=== PATIENT | female | born 1980 | race Caucasian/White ===

== ENCOUNTER 2016-07-28 16:39 | Inpatient (IN) | payer MEDICAID ==
[~2016-07-28] VITALS: Ht 170.2 cm; Wt 68.2 kg
--- NOTE | 2016-07-28 00:20 | NUR ---
2ND UNIT PRBC'S STARTED AT THIS TIME. VSS. WILL MONITOR. VISITOR AT BEDSIDE. SIDE RAILS X 2. BED LOW. CALL LIGHT IN REACH.
[~2016-07-28 16:39] MED LIST: PRENATAL COMPLE1 TAB PO
[2016-07-28 17:07] LABS: BASOPHILS 0.3 % (0.0-2.0); EOSINOPHILS 1.1 % (0-7); LYMPHOCYTES 41.3 % (15-50); MCHC 26.2 g/dL (31.0-37.0); MEAN PLATELET VOLUME 9.5 fL (7.4-10.4); MONOCYTES 10.8 % (2-11); NEUTROPHILS 46.5 % (40-80); RBC 4.06 10x6/uL (4.00-5.40); RDW 16.8 % (11.5-14.5); WBC 3.5 10x3/uL (4.8-10.8)
[2016-07-28 17:43] LABS: ALBUMIN 3.9 g/dL (3.4-5.0); ALKALINE PHOSPHATASE 53 U/L (46-116); ALT (SGPT) 16 U/L (10-68); CALC OSMOLALITY 272 mosm/kg (275-300); CALCIUM 7.8 mg/dL (8.5-10.1); CARBON DIOXIDE 22.8 mmol/L (21.0-32.0); CHLORIDE - SERUM 101 mmol/L (98-107); CREATININE - SERUM 0.7 mg/dL (0.6-1.3); GLUCOSE 118 mg/dL (74-106); PROTEIN - SERUM 7.6 g/dL (6.4-8.2); SODIUM 136 mmol/L (136-145); UREA NITROGEN 12 mg/dL (7-18); eGFR NON AFRICAN AMERICAN > 90 mL/min (90-120)
[2016-07-28 17:46] LABS: APPEARANCE HAZY (CLEAR); BILIRUBIN NEGATIVE (NEGATIVE); COLOR YELLOW (YELLOW); GLUCOSE NEGATIVE (NEGATIVE); KETONE NEGATIVE (NEGATIVE); LEUKOCYTE ESTERASE 1+ (NEGATIVE); NITRITE POSITIVE (NEGATIVE); PROTEIN TRACE mg/dL (NEGATIVE); UROBILINOGEN NORMAL (NORMAL)
[2016-07-28 17:47] LABS: BACTERIA MANY /hpf (NONE SEEN); RED CELLS - URINE 0-5 /hpf (0-5)
[2016-07-28 17:48] LABS: HEMOGLOBIN 6.8 g/dL (12-16); MCH 16.7 pg (26.0-34.0); PLATELET COUNT 100 10x3/uL (130-400)
[2016-07-28 19:00] LABS: UDS - AMPHET POSITIVE QUAL (NEGATIVE); UDS - BARB NEGATIVE QUAL (NEGATIVE); UDS - BENZO NEGATIVE QUAL (NEGATIVE); UDS - COCAINE NEGATIVE QUAL (NEGATIVE); UDS - METH NEGATIVE QUAL (NEGATIVE); UDS - OPIATE NEGATIVE QUAL (NEGATIVE); UDS - PCP NEGATIVE QUAL (NEGATIVE); UDS - THC NEGATIVE QUAL (NEGATIVE)
--- NOTE | 2016-07-28 22:05 | NUR ---
RECIEVED PT TO FLOOR VIA WHEELCHAIR AND HOSPITAL STAFF. PT AMBULATED SELF TO BED FROM DOORWAY. BLOOD GOING THAT WAS STARTED IN THE ED. VSS. PT IS ALERT AND ORIENTED AND ABLE TO VERBALIZE NEEDS. IV IS PATENT WITH BLOOD INFUSING. PT DENIES ANY PAIN AT THIS TIME. PT IS ORIENTED TO ROOM AND USE OF CALL LIGHT. NO NEEDS AE VERBALIZED AT THIS TIME. WILL CONTINUE TO MONITOR. SIDE RAILS ARE UP X 2. BED IS IN LOWEST POSITION. CALL LIGHT IS WITHIN REACH.
--- NOTE | 2016-07-28 22:10 | NUR ---
ADMIT ASSESSMENT COMPLETED. PT STATUS REMAINS UNCAHNGED FROM PREVIOUS. NO NEEDS VOICED. WILL MONITOR. SIDE RAILS X 2. BED LOW. CALL LIGHT IN REACH.
--- NOTE | 2016-07-28 22:35 | NUR ---
PRBC'S FINISHED AT THIS TIME. PT REMAINED W/O REACTION. VSS. WILL MONITOR. SIDE RAILS X 2. BED LOW. CALL LIGHT IN REACH.
--- NOTE | 2016-07-29 00:40 | NUR ---
PT REMAINS W/O REACTION TO TRANSFUSION AT THIS TIME. VSS. WILL MONITOR. SIDE RAILS X 2. BED LOW. CALL LIGHT IN REACH.
[2016-07-29 00:57] VITALS: BP 98/72; Ht 170.2 cm; Wt 68.2 kg
--- NOTE | 2016-07-29 02:25 | NUR ---
BLOOD FINISHED AND TUBE FLUSHING AT THIS TIME. PT REMAINED W/O REACTION AND VSS. WILL MONITOR. VISITOR AT BEDSIDE. SIDE RAILS X 2. BED LOW. CALL LIGHT IN REACH.
[2016-07-29 05:48] LABS: BASOPHILS 0.3 % (0.0-2.0); EOSINOPHILS 2.3 % (0-7); HEMATOCRIT 28.7 % (36.0-48.0); IMMATURE GRANULOCYTES 0.6 % (0-5); LYMPHOCYTES 35.8 % (15-50); MCH 18.7 pg (26.0-34.0); MCHC 27.9 g/dL (31.0-37.0); MCV 67.2 fL (80.0-100.0); MONOCYTES 14.5 % (2-11); NEUTROPHILS 46.5 % (40-80); PLATELET COUNT 105 10x3/uL (130-400); RBC 4.27 10x6/uL (4.00-5.40); RDW 19.4 % (11.5-14.5); WBC 3.5 10x3/uL (4.8-10.8)
--- NOTE | 2016-07-29 07:30 | NUR ---
REPORT RECEIVED FROM HEAD SETTER NURSE. CALL LIGHT IN REACH.
[2016-07-29 09:09] VITALS: BP 97/54
--- NOTE | 2016-07-29 09:15 | NUR ---
ASSESSMENT COMPLETED. CALL LIGHT IN REACH. WILL CONTINUE WITH PLAN OF CARE.
--- NOTE | 2016-07-29 11:20 | NUR ---
NO NEEDS VOICED AT THIS TIME. CALL LIGHT IN REACH.
[2016-07-29 13:06] VITALS: BP 116/72; BP 123/72
--- NOTE | 2016-07-29 13:30 | HP ---
PATIENT: CRISTINO COSTA MEDICAL RECORD: [id number] ACCOUNT: [id number] LOCATION:[id number] : 80 ADMISSION DATE: 07/28/16 HISTORY AND PHYSICAL EXAMINATION Admission History and Physical DATE OF ADMISSION: 07/28/2016 CHIEF COMPLAINT: Generalized weakness. HISTORY OF PRESENT ILLNESS: This is a 36-year-old white female, who presents to the Emergency Department complaining of generalized weakness. She states "I need a hysterectomy." She has heavy periods and has for years. She has gotten at least 1 transfusion in the past at [place] and does not want to go back over there. Dr. Rivera is her PCP and according to the records that I found, he last saw her in September 2013 when her hemoglobin was 6.8 and she got a blood transfusion then. In the ER today, her hemoglobin was 6.8, hematocrit 26, platelet count was 100,000 and MCV was very low at 64. Rest of her lab work was essentially normal. She is admitted for blood transfusion. PAST MEDICAL AND SURGICAL HISTORY: The patient states she was diagnosed with multiple sclerosis around [address]. She saw Dr[address] Vera in the past. She has not seen him in years. She states she is a drug addict and uses methamphetamine mostly. PAST SURGICAL HISTORY: section times 1. HOME MEDICATIONS: None. HABITS: She does smoke cigarettes. Denies any alcohol use and admits to methamphetamine. SOCIAL HISTORY: She is single. She lives with her boyfriend and her [id number]. FAMILY HISTORY: Her mother is alive and healthy. Father of lung cancer. REVIEW OF SYSTEMS: GENERAL: No major weight changes. HEENT: No sinus or allergy problems. RESPIRATORY: No history of emphysema or asthma. CARDIAC: No known coronary artery disease or heart problems. GASTROINTESTINAL: No GI bleed. No diarrhea. No constipation. No heartburn. GENITOURINARY: She has heavy periods. MUSCULOSKELETAL: No significant joint aches and pains. NEUROLOGIC: She has reportedly history of multiple sclerosis. PSYCHIATRIC: Denies depression or melancholia. PHYSICAL EXAMINATION: VITAL SIGNS: Temperature 98.4, pulse 59, respirations 20 and blood pressure 121/56. GENERAL: She is awake and alert. She does not appear to be in acute distress. She had blood being transfused right now. SKIN: Warm and dry. HISTORY AND PHYSICAL [id number] CRISTINO COSTA: Grossly within normal limits. NECK: Supple. No JVD or bruit. HEART: Regular rate and rhythm without murmur. LUNGS: Clear to auscultation. ABDOMEN: Soft, flat and nontender. EXTREMITIES: No edema. NEUROLOGIC: I did not get her up and walk her. LABORATORY WORK: CBC with a white count of 3500, hemoglobin 6.8, hematocrit 26.0, and platelets number 100,000. MCV is 64. Basic metabolic panel is all normal except calcium low at 7.8. Liver functions are all normal. CBC is contaminated with 5-10 epithelial cells. DIAGNOSTIC DATA: Chest x-ray shows no acute process. Urine drug screen was positive for methamphetamines. ASSESSMENT: 1. Menorrhagia. 2. Acute blood loss anemia, ongoing from her menstrual cycle. 3. Methamphetamine drug abuse. 4. Multiple sclerosis. PLAN: Transfuse tonight. I spoke with her briefly about [facility] [employer]E[facility] EXECUTIVE consultation to see if she would consider workup by SENIOR RESEARCH EXECUTIVE for possible hysterectomy, so that she does not continue to have anemia episodes. Other tests and procedures as warranted. TRANSINT:[id number] Voice Confirmation ID: [id number] DOCUMENT ID: [id number] ANGELA URIBE MD at 1330 CC: [id number] DICTATION DATE: 07/28/162252 [employer] SALES REPRESENTATIVE: 07/29/16 0011 ADM IN [facility] [address] [id number]
[2016-07-29] MEDS ORDERED: FERROUS SULFAT325 MG PO (13:45)
--- NOTE | 2016-07-29 13:50 | NUR ---
RESTING WITH EYES CLOSED. RESP EVEN AND UNLABORED. CALL LIGHT IN REACH.
--- NOTE | 2016-07-29 15:00 | NUR ---
PATIENT SITTING UPRIGHT IN BED ALERT. NO SIGNS OF DISTRESS NOTED. BED IN LOW POSITION. CALL LIGHT IN REACH.
--- NOTE | 2016-07-29 15:36 | NUR ---
IV DC'D WITH TIP INTACT. DC INSTRUCTIONS EXPLAINED TO PATIENT. VERBALIZED UNDERSTANDING.
--- NOTE | 2016-07-29 17:46 | NUR ---
DC'D TO VEHICLE VIA WC WITH FAMILY.
== END 2016-07-29 17:46 | disposition home or self-care (01) | DRG 812 ==
LOC: D.ER 16:39 → D.MS 19:39
PROVIDERS: Emergency Medicine; Family Medicine; Physician Assistant Medical; ADMIT Family Medicine
DX: D62 Acute posthemorrhagic anemia (principal); N92.0 Excessive and frequent menstruation with regular cycle; F15.10 Other stimulant abuse, uncomplicated; G35 Multiple sclerosis; F17.200 Nicotine dependence, unspecified, uncomplicated

== ENCOUNTER → 2016-09-04 07:38 | Outpatient (CLI) | payer MEDICAID ==
[2016-07-29 00:57] VITALS: BMI 23.5
[~2016-09-04 07:38] MED LIST changes: +FERROUS SULFAT325 MG PO
== END | disposition home or self-care (01) ==
LOC: D.MRI 07:38
DX: G35 Multiple sclerosis (principal)

== ENCOUNTER 2017-07-24 11:41 | Emergency (ER) | payer MEDICAID ==
[2016-07-29 00:57] VITALS: BMI 23.5
== END 2017-07-24 12:59 | disposition home or self-care (01) ==
LOC: D.ER 11:41
DX: K02.9 Dental caries, unspecified (principal); K04.7 Periapical abscess without sinus; D64.9 Anemia, unspecified; N92.0 Excessive and frequent menstruation with regular cycle; F17.200 Nicotine dependence, unspecified, uncomplicated

== ENCOUNTER 2019-03-09 03:41 | Emergency (ER) | payer MEDICAID ==
[~2019-03-09] VITALS: Ht 170.2 cm; Wt 72.7 kg
[2019-03-09 03:44] VITALS: Ht 170.2 cm; Wt 72.7 kg
[2019-03-09] MEDS ORDERED: CYCLOBENZAPRINE10 MG PO (04:39)
[2019-03-09] MEDS ORDERED: HYDROCODON-ACE1 EAC7 PO (04:39)
[2019-03-09 04:54] VITALS: BP 142/84
== END 2019-03-09 04:55 | disposition home or self-care (01) ==
LOC: D.ER 03:41
DX: S13.4XXA Sprain of ligaments of cervical spine, initial encounter (principal); V43.52XA Car driver injured in collision with other type car in traffic accident, initial encounter

== ENCOUNTER 2019-10-18 09:10 | Emergency (ER) | payer MEDICAID ==
[~2019-10-18] VITALS: Ht 170.2 cm; Wt 75.0 kg
[~2019-10-18 09:10] MED LIST changes: +CYCLOBENZAPRINE10 MG PO; +HYDROCODON-ACE1 EAC7 PO
[2019-10-18 09:15] VITALS: BP 135/81; Ht 170.2 cm; Wt 75.0 kg
[2019-10-18] MEDS ORDERED: PERMETHRIN60 GM TOPICAL (10:18)
== END 2019-10-18 10:44 | disposition home or self-care (01) ==
LOC: D.ER 09:10
DX: S20.219A Contusion of unspecified front wall of thorax, initial encounter (principal); S09.90XA Unspecified injury of head, initial encounter; B85.0 Pediculosis due to Pediculus humanus capitis; W10.9XXA Fall (on) (from) unspecified stairs and steps, initial encounter; Y93.9 Activity, unspecified; Y92.9 Unspecified place or not applicable; G35 Multiple sclerosis; R07.9 Chest pain, unspecified